=== PATIENT | female | born 1970 | race Caucasian/White ===

== ENCOUNTER → 2018-11-20 | Outpatient (CLI) | payer SELFPAY ==
--- NOTE | 2018-11-21 07:57 | MM ---
Reason for exam: additional evaluation requested from prior study. Last mammogram was performed 1 year and 6 months ago. History: Family history of premenopausal breast cancer in mother. Benign US breast needle core LT of the left breast, May 24, 2017. Benign left mammotome panel of the left breast, June 09, 2012. Excisional biopsy of the left breast, 1991. Took hormonal contraceptives for 3 years beginning at age 29. Physical Findings: Nurse Summary: less than 1cm nodule in the left breast at 6 o'clock (nurse rm). MG 3D Diag Mammo W/Cad [facility] Bilateral CC and MLO view(s) were taken. Prior study comparison: May 24, 2017, left breast MG diagnostic mammo LT wo CAD. May 03, 2017, bilateral MG 3d screening mammo w/cad. October 01, 2015, bilateral MG 3d screening mammo w/cad. The breast tissue is heterogeneously dense. This may lower the sensitivity of mammography. Previous mammotome biopsy in the left breast x 2. Palpable marker lower inner quadrant. Regional calcifications left breast stable back to 2017. No significant new findings when compared with previous films. These results were verbally communicated with the patient and result sheet given to the patient on 11/20/18. ASSESSMENT: Incomplete: need additional imaging evaluation, BI-RAD 0 RECOMMENDATION: Ultrasound of the left breast. (as ordered)
--- NOTE | 2018-11-21 08:00 | USB ---
Reason for exam: additional evaluation requested from abnormal screening. History: Family history of premenopausal breast cancer in mother. Benign US breast needle core LT of the left breast, May 24, 2017. Benign left mammotome panel of the left breast, June 09, 2012. Excisional biopsy of the left breast, 1991. Took hormonal contraceptives for 3 years beginning at age 29. US Breast LT Left complete breast ultrasound includes all four quadrants, the retroareolar region and axilla. Finding demonstrates a 0.2 x 0.2 x 0.3cm lesion too small to characterize at 1 o'clock, a 0.3 x 0.3 x 0.4cm lesion too small to characterize at 1 o'clock, a 0.4 x 0.2 x 0.4cm lesion too small to characterize at 8 o'clock versus 8 x 4mm prior to biopsy, biopsy proved tubular adenoma, a 0.4 x 0.3 x 0.4cm lesion too small to characterize at 10 o'clock and a 0.4 x 0.3 x 0.4cm cystic lesion at 12 o'clock. These results were verbally communicated with the patient and result sheet given to the patient on 11/20/18. ASSESSMENT: Benign, BI-RAD 2 RECOMMENDATION: Routine screening mammogram of both breasts in 1 year.
== END | disposition home or self-care (01) ==
LOC: RADMAMWWP 13:30
PROVIDERS: ATTEND Family Medicine
DX: R92.8 Other abnormal and inconclusive findings on diagnostic imaging of breast (principal)
CPT/HCPCS: 77062; 77066

== ENCOUNTER → 2023-07-15 | Outpatient (CLI) | payer OTHER ==
--- NOTE | 2023-07-15 08:20 | MM ---
Reason for Exam: Follow-up at short interval from prior study. Last screening mammogram was performed 10 month(s) ago. Patient History: Menarche at age 10. First Full-Term at age 16. Postmenopausal. Currently using Hormonal Contraceptives, beginning at age 29 for 3 years. 1991, Excisional Biopsy on the Left side. 05/24/2017, Benign Core Biopsy on the left side. 06/09/2012, Benign Core Biopsy on the left side. Risk Values: Joyce 5 year model risk: 1.3%. NCI Lifetime model risk: 10.0%. Prior Study Comparison: 11/20/2018 Bilateral Diagnostic Mammogram, [facility]. 09/10/2022 Bilateral MG 3D screening mammo w/cad, [facility]. 09/20/2022 Left MG 3D work up w/cad , [facility]. Tissue Density: Left: The breast tissue is heterogeneously dense. This may lower the sensitivity of mammography. Findings: Analyzed By CAD. There is an area of asymmetric density superiorly on the MLO view which becomes less defined but incompletely disperses on additional views. Further ultrasound evaluation is recommended. 2 microclips in the medial aspect of the left breast from prior biopsies. The subtle grouped microcalcifications in the left breast are unchanged for 6 months. Overall Assessment: Incomplete: need additional imaging evaluation, BI-RAD 0 Management: Diagnostic Breast Ultrasound of the left breast. Upper outer quadrant. Electronically signed and approved by: Scooter Ji M.D. Radiologist
--- NOTE | 2023-07-15 08:40 | USB ---
Reason for Exam: Additional evaluation requested from abnormal screening. Patient History: Menarche at age 10. First Full-Term at age 16. Postmenopausal. Currently using Hormonal Contraceptives, beginning at age 29 for 3 years. 1991, Excisional Biopsy on the Left side. 05/24/2017, Benign Core Biopsy on the left side. 06/09/2012, Benign Core Biopsy on the left side. Risk Values: Joyce 5 year model risk: 1.3%. NCI Lifetime model risk: 10.0%. Technique: Method: Targeted. Prior Study Comparison: 11/20/2018 Bilateral Diagnostic Mammogram, [facility]. 09/10/2022 Bilateral MG 3D screening mammo w/cad, [facility]. 09/20/2022 Left MG 3D work up w/cad , [facility]. Findings: The upper outer quadrant of the left breast, the axilla of the left breast and the retroareolar of the left breast were scanned. Targeted ultrasound upper outer quadrant left breast including scanning of the subareolar region and axilla. At the 1:00 position, 7 cm from the nipple, there is a cyst cluster versus complex cyst measuring 1.1 x 0.8 x 0.3 cm embedded within dense tissue. Prominent but otherwise benign-appearing lymph node in the left axilla. Given cortical thickness of 3 mm, this can also be reassessed at the follow-up. Overall Assessment: Probably benign, BI-RAD 3 Management: Diagnostic Mammogram of both breasts in 2 months. Diagnostic Breast Ultrasound of the left breast in 2 months. Ongoing short interval follow-up left breast in time for the patient's annual exam of the right breast. Results were given to the patient verbally at the time of exam. Electronically signed and approved by: Scooter Ji M.D. Radiologist
== END | disposition home or self-care (01) ==
LOC: RADMAMWWP 07:39
PROVIDERS: ATTEND Student in an Organized Health Care Education/Training Program
DX: R92.332 Mammographic heterogeneous density, left breast (principal); Z78.0 Asymptomatic menopausal state
CPT/HCPCS: 77061; 77065

== ENCOUNTER → 2023-09-19 | Outpatient (CLI) | payer OTHER ==
--- NOTE | 2023-09-19 09:49 | MM ---
Reason for Exam: Clinical finding. Last screening mammogram was performed 12 month(s) ago. Indicated Problems: Palpable abnormality of the left side. Patient History: Menarche at age 10. First Full-Term at age 16. Postmenopausal. Currently using Hormonal Contraceptives, beginning at age 29 for 3 years. 1991, Excisional Biopsy on the Left side. 05/24/2017, Benign Core Biopsy on the left side. 06/09/2012, Benign Core Biopsy on the left side. Risk Values: Joyce 5 year model risk: 1.4%. NCI Lifetime model risk: 9.9%. Prior Study Comparison: 10/01/2015 Bilateral Screening Mammogram, [facility]. 05/03/2017 Bilateral Screening Mammogram, [facility]. 05/24/2017 Left Diagnostic Mammogram, [facility]. 09/16/2017 Left MG diagnostic mammo LT w CAD - 2, [facility]. 11/20/2018 Bilateral Diagnostic Mammogram, [facility]. 09/10/2022 Bilateral MG 3D screening mammo w/cad, [facility]. 09/20/2022 Left MG 3D work up w/cad LT, [facility]. 07/15/2023 Left MG 3D diag mammo w/cad LT, [facility]. Tissue Density: The breast tissue is heterogeneously dense. This may lower the sensitivity of mammography. Findings: Analyzed By CAD. The pattern is symmetrical. There are a few scattered calcifications present bilaterally stable from comparison. No suspicious groups of microcalcifications, spiculated or lobular masses, architectural distortion or other secondary signs of malignancy are mammographically apparent. Overall Assessment: Benign, BI-RAD 2 Management: Screening Mammogram of both breasts in 1 year. Diagnostic Breast Ultrasound of the left breast in 6 months. A negative mammogram report should not preclude additional follow up of suspicious palpable abnormalities. Patient should continue monthly self breast exam. A clinical breast exam by your physician is recommended on an annual basis and results should be correlated with mammographic findings. Electronically signed and approved by: Cassius Ochoa D.O. Radiologis
--- NOTE | 2023-09-21 13:18 | USB ---
Reason for Exam: Follow-up at short interval from prior study. Patient History: Menarche at age 10. First Full-Term at age 16. Postmenopausal. Currently using Hormonal Contraceptives, beginning at age 29 for 3 years. 1991, Excisional Biopsy on the Left side. 05/24/2017, Benign Core Biopsy on the left side. 06/09/2012, Benign Core Biopsy on the left side. Risk Values: Joyce 5 year model risk: 1.4%. NCI Lifetime model risk: 9.9%. Technique: Method: Targeted. Prior Study Comparison: 09/10/2022 Bilateral MG 3D screening mammo w/cad, [facility]. 09/20/2022 Left MG 3D work up w/cad LT, [facility]. 07/15/2023 Left MG 3D diag mammo w/cad LT, [facility]. Findings: The upper outer quadrant of the left breast, the axilla of the left breast and the retroareolar of the left breast were scanned. There is a 2.2 x 1.2 x 1.9 cm lymph node in the left axilla. Current cortex measurement 0.362 cm. Given minimal measurement error, this is stable from comparison. However, given that the cortex is technically thickened greater than 0.3 cm follow-up exam in 6 months is recommended for reevaluation. The complex cystic area which does contain some vascularity is similar in size to the prior study. This currently measures 0.7 x 0.6 x 0.3 cm 1:00 position 7 cm from the nipple. Overall Assessment: Probably benign, BI-RAD 3 Management: Diagnostic Breast Ultrasound of the left breast in 6 months. A clinical breast exam by your physician is recommended on an annual basis and results should be correlated with mammographic findings. This exam should not preclude additional follow-up of suspicious palpable abnormalities. Results were given to the patient verbally at the time of exam. Electronically signed and approved by: Cassius Ochoa D.O. Radiologis
== END | disposition home or self-care (01) ==
LOC: RADMAMWWP 07:25
PROVIDERS: ATTEND Student in an Organized Health Care Education/Training Program
DX: R92.333 Mammographic heterogeneous density, bilateral breasts (principal); R92.2 Inconclusive mammogram; R92.1 Mammographic calcification found on diagnostic imaging of breast; Z78.0 Asymptomatic menopausal state
CPT/HCPCS: 77062; 77066

== ENCOUNTER → 2024-05-25 | Outpatient (CLI) | payer OTHER ==
--- NOTE | 2024-05-25 09:31 | USB ---
Reason for Exam: Follow-up at short interval from prior study. Patient History: Menarche at age 10. First Full-Term at age 16. Postmenopausal. Currently using Hormonal Contraceptives, beginning at age 29 for 3 years. 1991, Excisional Biopsy on the Left side. 05/24/2017, Benign Core Biopsy on the left side. 06/09/2012, Benign Core Biopsy on the left side. Risk Values: Joyce 5 year model risk: 1.4%. NCI Lifetime model risk: 9.9%. Technique: Method: Targeted. Doppler: Color. Patient Position: Supine. Prior Study Comparison: 09/20/2022 Left MG 3D work up w/cad LT, [facility]. 07/15/2023 Left MG 3D diag mammo w/cad LT, [facility]. 09/19/2023 Bilateral MG 3D diag mammo w/cad [facility], [facility]. Findings: The area of palpable concern of the left breast, the axilla of the left breast and the retroareolar of the left breast were scanned. Targeted ultrasound upper outer left breast 1:00 position including scanning of the subareolar region and axilla. At the 1:00 position, 7 cm from the nipple, there is a vague echogenic area with minimal internal cystic change measuring approximately 1.4 cm. Previously, there was dense island of tissue measuring 1.5 cm containing a larger cystic areas measuring up to 7 mm. Suspect fluctuating fibrocystic change which likely corresponds to the mammographic asymmetry. Given the changing appearance, additional short interval follow-up can be performed. Some mildly lobulated borderline sized axillary lymph nodes remain unchanged, cortical thickness up to 3 mm. These can also be reassessed at follow-up. Overall Assessment: Probably benign, BI-RAD 3 Management: Diagnostic Mammogram of both breasts in 6 months. Diagnostic Breast Ultrasound of the left breast in 6 months. Total one-year mammogram follow-up left breast and annual exam of the right breast. Ultrasound for the 1:00 area and axilla. A clinical breast exam by your physician is recommended on an annual basis and results should be correlated with mammographic findings. This exam should not preclude additional follow-up of suspicious palpable abnormalities. Results were given to the patient verbally at the time of exam. [facility], , 05/25/2024 9:29 AM. Electronically signed and approved by: Scooter Ji M.D. Radiologist
== END | disposition home or self-care (01) ==
LOC: RADUSWWP 09:05
PROVIDERS: ATTEND Student in an Organized Health Care Education/Training Program
DX: R92.8 Other abnormal and inconclusive findings on diagnostic imaging of breast (principal); Z78.0 Asymptomatic menopausal state

== ENCOUNTER → 2024-11-26 | Outpatient (CLI) | payer OTHER ==
--- NOTE | 2024-11-26 07:51 | MM ---
Reason for Exam: Follow-up at short interval from prior study. Last mammogram was performed 1 year(s) and 3 month(s) ago. Patient History: Menarche at age 10. First Full-Term at age 16. Postmenopausal. Currently using Hormonal Contraceptives, beginning at age 29 for 3 years. 1991, Excisional Biopsy on the Left side. 05/24/2017, Benign Core Biopsy on the left side. 06/09/2012, Benign Core Biopsy on the left side. Risk Values: Joyce 5 year model risk: 1.4%. NCI Lifetime model risk: 9.7%. Tissue Density: The breasts are heterogeneously dense, which may obscure small masses. Findings: Analyzed By CAD. Left breast biopsy clips. No finding to correlate with palpable abnormality. No suspicious findings. Overall Assessment: Incomplete: need additional imaging evaluation, BI-RAD 0 Management: Diagnostic Breast Ultrasound of the left breast. Results were given to the patient verbally at the time of exam. Patient should continue monthly self-breast exams. A clinical breast exam by your physician is recommended on an annual basis. This exam should not preclude additional follow-up of suspicious palpable abnormalities. Note on Joyce scores and lifetime risk: 1. A Joyce score greater than 3% is considered moderate risk. If this is the case, consider specialist referral to assess eligibility for a risk reducing agent. 2. If overall lifetime risk for the development of breast cancer is 20% or higher, the patient may qualify for future screening with alternating mammogram and breast MRI. [facility], , 11/26/2024 7:48 AM. Electronically signed and approved by: Toni Hamilton DO
--- NOTE | 2024-11-26 07:54 | USB ---
Reason for Exam: Follow-up at short interval from prior study. Patient History: Menarche at age 10. First Full-Term at age 16. Postmenopausal. Currently using Hormonal Contraceptives, beginning at age 29 for 3 years. 1991, Excisional Biopsy on the Left side. 05/24/2017, Benign Core Biopsy on the left side. 06/09/2012, Benign Core Biopsy on the left side. Risk Values: Joyce 5 year model risk: 1.4%. NCI Lifetime model risk: 9.7%. Technique: Method: Targeted. Prior Study Comparison: 09/20/2022 Left MG 3D work up w/cad LT, [facility]. 07/15/2023 Left MG 3D diag mammo w/cad LT, [facility]. 09/19/2023 Bilateral MG 3D diag mammo w/cad [facility], [facility]. Findings: The upper section of the breast of the left breast, the area of palpable concern of the left breast, the axilla of the left breast and the retroareolar of the left breast were scanned. Technique utilized:US breast limited LT Image; Ultrasound imaging of: Area of concern, retroareolar region and axilla. Suspected cluster of cysts at 11:00 2 cm from the nipple at the area of palpable abnormality measuring 10 x 4 x 10 mm. Area at 1:00 7 cm from the nipple not definitively visualized from prior likely representing resolved cysts on prior ultrasound on 05/25/2024. No evidence for organizing fluid collection or mass. Lymph nodes within the axilla are within normal limits. Overall Assessment: Probably benign, BI-RAD 3 Management: Diagnostic Breast Ultrasound of the left breast in 6 months. A clinical breast exam by your physician is recommended on an annual basis and results should be correlated with mammographic findings. This exam should not preclude additional follow-up of suspicious palpable abnormalities. Results were given to the patient verbally at the time of exam. [facility], , 11/26/2024 7:51 AM. Electronically signed and approved by: Toni Hamilton DO
== END | disposition home or self-care (01) ==
LOC: RADMAMWWP 06:57
PROVIDERS: ATTEND Student in an Organized Health Care Education/Training Program
DX: R92.8 Other abnormal and inconclusive findings on diagnostic imaging of breast (principal); R92.333 Mammographic heterogeneous density, bilateral breasts; Z78.0 Asymptomatic menopausal state; Z92.0 Personal history of contraception
CPT/HCPCS: 77062; 77066

== ENCOUNTER 2024-12-08 23:49 | Emergency (ER) | payer OTHER ==
[2024-12-09 00:08] VITALS: BP 125/76; PULSE 96; RESP 19; TEMP 98.2
[2024-12-09] MEDS ORDERED: ACETAMINOPHEN TAB 500 MG TAB PO STA (00:24)
[2024-12-09] MEDS ORDERED: ONDANSETRON 4 MG/2 ML VIAL IVP STA (00:24)
[2024-12-09 00:25] LABS: Glucose,Whole Blood 117 mg/dL (70-110)
[2024-12-09] MEDS: fentaNYL (PF) 50 MCG/ML 2 ML AMP IVP STA ×2 (00:25→00:31)
[2024-12-09 00:34] LABS: Basophils # (A) 0.08 10*3/uL (0.00-0.10); Basophils % (A) 0.5 %; Eosinophils # (A) 0.07 10*3/uL (0.04-0.35); Eosinophils % (A) 0.4 %; HCT 43.6 % (37.2-46.3); HGB 14.9 g/dL (12.0-15.0); Lymphocytes # (A) 1.79 10*3/uL (0.90-5.00); Lymphocytes % (A) 10.4 %; MCHC 34.2 g/dL (32.0-37.0); MCV 93.8 fL (80.0-97.0); Monocytes # (A) 0.48 10*3/uL (0.20-1.00); Monocytes % (A) 2.8 %; Neutrophils # (A) 14.79 10*3/uL (1.80-7.70); Neutrophils % (A) 85.6 %; Platelet Count 326 10*3/uL (140-440); RBC 4.65 10*6/uL (4.10-5.20); RDW 12.3 % (11.5-14.5); WBC 17.27 10*3/uL (4.50-10.00)
[2024-12-09 00:49] LABS: ALT 26 U/L (4-34); AST 33 U/L (14-36); African American GFR (CKD) >90 (>60 ml/min/1.73 sqM); Albumin 4.9 g/dL (3.5-5.0); Alkaline Phosphatase 64 U/L (38-126); Anion Gap 12 mmol/L; Blood Urea Nitrogen 16 mg/dL (7-17); Calcium 9.9 mg/dL (8.4-10.2); Carbon Dioxide 29 mmol/L (22-30); Chloride 104 mmol/L (98-107); Creatine Kinase 169 U/L (30-135); Glucose 112 mg/dL (74-99); Non-African American GFR(CKD) 86 (>60 ml/min/1.73 sqM); Potassium 4.4 mmol/L (3.5-5.1); Sodium 145 mmol/L (137-145); Total Bilirubin 0.3 mg/dL (0.2-1.3)
[2024-12-09] MEDS: SODIUM CHLORIDE 0.9% 1,000 ML IV STA (00:51)
[2024-12-09 00:58] LABS: Partial Thromboplastin Time 21.4 sec (22.0-30.0); Prothrombin Time 11.1 sec (10.0-12.5)
[2024-12-09] MEDS: HYDROmorphone 1 MG/ML 1 ML SYRINGE IVP STA ×2 (01:01→03:38)
[2024-12-09 01:05] LABS: Alcohol 108 mg/dL
--- NOTE | 2024-12-09 01:37 | XR ---
EXAM: XR Pelvis, 1 or 2 Views CLINICAL HISTORY: ITS.REASON XR Reason: Trauma TECHNIQUE: Frontal view of the pelvis. COMPARISON: None FINDINGS: Bones/joints: No displaced fracture or dislocation identified. Mild degenerative changes of the hips. No bony lesion. Soft tissues: Normal. No radiopaque foreign body identified. Other: Presumed phleboliths in the pelvis. IMPRESSION: No displaced fracture or dislocation identified.
--- NOTE | 2024-12-09 01:37 | XR ---
EXAM: XR Chest, 1 View CLINICAL HISTORY: ITS.REASON XR Reason: trauma TECHNIQUE: Frontal view of the chest. COMPARISON: None FINDINGS: Hardware: None. Lungs/pleura: Normal. No focal consolidation. No pleural effusion or pneumothorax. Heart/mediastinum: Normal. No cardiomegaly. Soft tissues: Unremarkable. Bones: No acute fracture. Upper abdomen: Normal. IMPRESSION: No acute disease identified.
--- NOTE | 2024-12-09 01:39 | XR ---
EXAM: XR Right Tibia and Fibula, 2 Views CLINICAL HISTORY: ITS.REASON XR Reason: trauma TECHNIQUE: Frontal and lateral views of the right tibia and fibula. COMPARISON: None FINDINGS: Bones/joints: Nondisplaced fractures of the lateral patella. No dislocation. No bony lesion. Soft tissues: Soft tissue swelling. No radiopaque foreign body identified. IMPRESSION: Nondisplaced fractures of the lateral patella.
--- NOTE | 2024-12-09 01:44 | CT ---
EXAM: CT Chest With Intravenous Contrast CLINICAL HISTORY: ITS.REASON CT Reason: trauma, left rib pain TECHNIQUE: Axial computed tomography images of the chest with intravenous contrast. CTDI is 8.9 mGy and DLP is 649.6 mGy-cm. This CT exam was performed using one or more of the following dose reduction techniques: automated exposure control, adjustment of the mA and/or kV according to patient size, and/or use of iterative reconstruction technique. COMPARISON: None FINDINGS: Lungs: Mild dependent atelectasis bilaterally. No focal consolidation. No mass. Pleural space: Unremarkable. No pneumothorax. No significant effusion. Heart: Unremarkable. No cardiomegaly. No significant pericardial effusion. No significant coronary artery calcifications. Bones/joints: Degenerative changes of the spine. No acute fracture. No dislocation. Soft tissues: Unremarkable. Vasculature: Unremarkable. No thoracic aortic aneurysm. Lymph nodes: Unremarkable. No enlarged lymph nodes. IMPRESSION: No acute findings in the chest. EXAM: CT Abdomen and Pelvis With Intravenous Contrast CLINICAL HISTORY: ITS.REASON CT Reason: trauma, left rib pain TECHNIQUE: Axial computed tomography images of the abdomen and pelvis with intravenous contrast. CTDI is 9.2 mGy and DLP is 547.5 mGy-cm. This CT exam was performed using one or more of the following dose reduction techniques: automated exposure control, adjustment of the mA and/or kV according to patient size, and/or use of iterative reconstruction technique. COMPARISON: None FINDINGS: ABDOMEN: Liver: Unremarkable. No mass. Gallbladder and bile ducts: Unremarkable. No calcified stones. No ductal dilation. Pancreas: Unremarkable. No mass. No ductal dilation. Spleen: Unremarkable. No splenomegaly. Adrenals: Unremarkable. No mass. Kidneys and ureters: Unremarkable. No hydronephrosis or obstructing ureteral stone. Stomach and bowel: Moderate to large amount of stool in the colon. No small bowel obstruction. No mucosal thickening. PELVIS: Appendix: Normal appendix. Bladder: Unremarkable. No mass. Reproductive: Unremarkable as visualized. ABDOMEN and PELVIS: Intraperitoneal space: Unremarkable. No free air. No significant fluid collection. Bones/joints: Bilateral L5 pars defects. Grade 1 anterolisthesis of L5 on S1. Degenerative changes of the spine. No acute fracture. No dislocation. Soft tissues: Small fat containing umbilical hernia. Vasculature: Phleboliths in the pelvis. No abdominal aortic aneurysm. Lymph nodes: Unremarkable. No enlarged lymph nodes. IMPRESSION: No acute findings in the abdomen or pelvis.
--- NOTE | 2024-12-09 01:46 | CT ---
EXAM: CT Head Without Intravenous Contrast CLINICAL HISTORY: ITS.REASON CT Reason: trauma TECHNIQUE: Axial computed tomography images of the head/brain without intravenous contrast. CTDI is 45.2 mGy and DLP is 1088 mGy-cm. This CT exam was performed using one or more of the following dose reduction techniques: automated exposure control, adjustment of the mA and/or kV according to patient size, and/or use of iterative reconstruction technique. COMPARISON: None FINDINGS: Brain: No acute infarct or hemorrhage. No extra-axial fluid collection. No mass effect or midline shift. Ventricles and sulci: Normal. No ventriculomegaly or intraventricular hemorrhage. Bones: Normal. No bony lesion or acute fracture. Subcutaneous tissues: Normal. Sinuses: Normal. No air-fluid levels or mucosal thickening. Mastoid air cells: Normal. Orbits: Grossly unremarkable. IMPRESSION: No acute intracranial abnormality. EXAM: CT Cervical Spine Without Intravenous Contrast CLINICAL HISTORY: ITS.REASON CT Reason: trauma TECHNIQUE: Axial computed tomography images of the cervical spine without intravenous contrast. CTDI is 9.9 mGy and DLP is 290 mGy-cm. This CT exam was performed using one or more of the following dose reduction techniques: automated exposure control, adjustment of the mA and/or kV according to patient size, and/or use of iterative reconstruction technique. COMPARISON: None FINDINGS: Bones: Normal alignment. No acute fracture or bony lesion. Disc spaces: No subluxation. Degenerative changes of the spine. Soft tissues: Normal. Other: Scarring of the lung apices. IMPRESSION: No acute traumatic abnormality.
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
[2024-12-09] MEDS ORDERED: LIDOCAINE 4% PATCH TOPICAL ONE (02:02)
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
== END 2024-12-09 04:15 | disposition home or self-care (01) ==
LOC: EC 23:49
DX: S82.001A Unspecified fracture of right patella, initial encounter for closed fracture (principal); V89.2XXA Person injured in unspecified motor-vehicle accident, traffic, initial encounter; Y92.410 Unspecified street and highway as the place of occurrence of the external cause
CPT/HCPCS: 36415; 86900; 86901; 80053; 82550; 83605; 84484; 85025; 85610; 85730; 86850; 80320; 72170; 73590; 73564; 71045; 72125; 70450; 71260; 74177; 99284; 96374; 96375; 96361; J3010; J1171; Q9967